=== PATIENT | male | born 1985 | race Caucasian/White ===

== ENCOUNTER 2018-08-19 17:28 | Emergency (ER) | payer BC ==
[2018-08-19] MEDS ORDERED: SODIUM CHLORIDE 1,000 ML IV STA (17:31)
[2018-08-19 17:34] VITALS: BP 127/77; PULSE 71; TEMP 98.8; BMI 35.2
--- NOTE | 2018-08-19 17:52 | PDOC ---
History of Present Illness <Verona Sloan - Last Filed: 08/19/18 18:49> - General History Source: Patient Exam Limitations: No Limitations - History of Present Illness Initial Comments: 08/19/18 17:48 32 year old male c/ hx of gout, inguinal hernia repair p/w left sided abdominal pain x several days. The patient reported that he was building a toy set for his son. Noted afterwards of developing LLQ pain. Reported pain was persistent and constant and dull, but there was no nausea, vomiting, diarrhea, No fevers, chills. Only endorsed worsened appetite. Has not noticed a "buldge" but believes it may be an abdominal hernia. States that the pain radiates to LUQ down to his left scrotum. Denies dysuria, urinary frequency, hematuria. Pt tried to call his PMD but they did not have an appointment until September 04. <Mario Salvador - Last Filed: 08/19/18 18:56> <Mario Chavez - Last Filed: 08/19/18 19:56> - General Chief Complaint: Pain Stated Complaint: ABD PAIN Time Seen by Provider: 08/19/18 17:30 Past History <Verona Sloan - Last Filed: 08/19/18 18:49> - Past Medical History COPD: No Other medical history: GOUT - Suicide/Smoking/Psychosocial Hx Smoking History: Never smoked Have you smoked in the past 12 months: No Information on smoking cessation initiated: No Hx Alcohol Use: No Drug/Substance Use Hx: No Substance Use Type: None <Mario Salvador - Last Filed: 08/19/18 18:56> <Mario Chavez - Last Filed: 08/19/18 19:56> - Past Medical History Allergies/Adverse Reactions: Allergies Allergy/AdvReac Type Severity Reaction Status Date / Time No Known Allergies Allergy Verified 08/19/18 17:29 Home Medications: Ambulatory Orders Allopurinol 600 mg PO DAILY 08/19/18 Ciprofloxacin [Cipro -] 500 mg PO Q12H #14 tablet 08/19/18 Review of Systems - Review of Systems Able to Perform ROS?: Yes Comments:: 08/19/18 18:15 GENERAL/CONSTITUTIONAL: [No fever or chills. No weakness. No weight change.] HEAD, EYES, EARS, NOSE AND THROAT: [No change in vision. No ear pain or discharge. No sore throat.] CARDIOVASCULAR: [No chest pain or shortness of breath.] RESPIRATORY: [No cough, wheezing, or hemoptysis.] GASTROINTESTINAL: [No nausea, vomiting, diarrhea or constipation. No rectal bleeding.] +abdominal pain. GENITOURINARY: [No dysuria, frequency, or change in urination.] MUSCULOSKELETAL: [No joint or muscle swelling or pain. No neck or back pain.] SKIN AND BREASTS: [No rash or easy bruising.] NEUROLOGIC: [No headache, vertigo, loss of consciousness, or loss of sensation.] PSYCHIATRIC: [No depression or anxiety.] ENDOCRINE: [No increased thirst. No abnormal weight change.] HEMATOLOGIC/LYMPHATIC: [No anemia, easy bleeding, or history of blood clots.] ALLERGIC/IMMUNOLOGIC: [No hives or skin allergy. No latex allergy.] <Mario Salvador - Last Filed: 08/19/18 18:56> *Physical Exam - Vital Signs Last Vital Signs Temp Pulse Resp BP Pulse Ox 98.8 F 71 18 127/77 99 08/19/18 17:28 08/19/18 17:28 08/19/18 17:28 08/19/18 17:28 08/19/18 17:28 <Verona Sloan - Last Filed: 08/19/18 18:49> - Vital Signs Last Vital Signs Temp Pulse Resp BP Pulse Ox 98.8 F 71 18 127/77 99 08/19/18 17:28 08/19/18 17:28 08/19/18 17:28 08/19/18 17:28 08/19/18 17:28 - Physical Exam Comments: 08/19/18 18:15 GENERAL: Awake, alert, and fully oriented, in no acute distress HEAD: No signs of trauma EYES: EOMI, sclera anicteric, conjunctiva clear ENT: Auricles normal inspection, hearing grossly normal, nares patent,Moist mucosa NECK: Normal ROM, supple ABDOMEN: Soft, TTP LUQ, Left mid, LLQ. No guarding, no rebound. No masses : Circumcized penis. No rashes, lesions, drainage. Mild tenderness to left testicle. Cremasteric reflex intact. no swelling appreciated. No inguinal hernia appreciated. EXTREMITIES: Normal range of motion, no edema. No clubbing or cyanosis. No cords, erythema, or tenderness NEUROLOGICAL: Cranial nerves II through XII grossly intact. Normal speech, normal gait SKIN: Warm, Dry, normal turgor, no rashes or lesions noted. <Mario Salvador - Last Filed: 08/19/18 18:56> - Vital Signs Last Vital Signs Temp Pulse Resp BP Pulse Ox 98.8 F 71 18 127/77 99 08/19/18 17:28 08/19/18 17:28 08/19/18 17:28 08/19/18 17:28 08/19/18 17:28 <Mario Chavez - Last Filed: 08/19/18 19:56> Moderate Sedation - Procedure Monitoring Vital Signs: Procedure Monitoring Vital Signs Temperature 98.8 F 08/19/18 17:28 Pulse Rate 71 08/19/18 17:28 Respiratory Rate 18 08/19/18 17:28 Blood Pressure 127/77 08/19/18 17:28 O2 Sat by Pulse Oximetry (%) 99 08/19/18 17:28 <Verona Sloan - Last Filed: 08/19/18 18:49> - Procedure Monitoring Vital Signs: Procedure Monitoring Vital Signs Temperature 98.8 F 08/19/18 17:28 Pulse Rate 71 08/19/18 17:28 Respiratory Rate 18 08/19/18 17:28 Blood Pressure 127/77 08/19/18 17:28 O2 Sat by Pulse Oximetry (%) 99 08/19/18 17:28 <Mario Salvador - Last Filed: 08/19/18 18:56> - Procedure Monitoring Vital Signs: Procedure Monitoring Vital Signs Temperature 98.8 F 08/19/18 17:28 Pulse Rate 71 08/19/18 17:28 Respiratory Rate 18 08/19/18 17:28 Blood Pressure 127/77 08/19/18 17:28 O2 Sat by Pulse Oximetry (%) 99 08/19/18 17:28 <Mario Chavez - Last Filed: 08/19/18 19:56> ED Treatment Course - LABORATORY CBC & Chemistry Diagram: 08/19/18 17:46 08/19/18 17:46 - ADDITIONAL ORDERS Additional order review: Laboratory Results 08/19/18 08/19/18 18:18 17:46 Sodium 136 Potassium 4.0 Chloride 100 Carbon Dioxide 26 Anion Gap 10 BUN 11 Creatinine 1.0 Creat Clearance w eGFR > 60 Random Glucose 96 Calcium 9.0 Total Bilirubin 0.5 AST 19 ALT 20 Alkaline Phosphatase 80 Total Protein 7.1 Albumin 4.3 Urine Color Yellow Urine Appearance Clear Urine pH 5.5 Ur Specific [place] 1.015 Urine Protein Negative Urine Glucose (UA) Negative Urine Ketones Negative Urine Blood Negative Urine Nitrite Negative Urine Bilirubin Negative Urine Urobilinogen 0.2 Ur Leukocyte Esterase Negative 08/19/18 17:46 RBC 5.12 MCV 88.2 MCHC 32.9 RDW 14.5 D MPV 10.1 D Neutrophils % 68.4 Lymphocytes % 21.8 D Monocytes % 9.1 Eosinophils % 0.0 D Basophils % 0.7 D - RADIOLOGY Radiograph Interpretation: EXAM#: TYPE/EXAM: RESULT: [id number] US/SCROTUM AND CONTENTS US IMPRESSION: Slight heterogeneous and hypervascular left testicle suspicious for orchitis. No evidence of testicular torsion. Clinical correlation and follow-up recommended. Please see above discussion. Reported By: Jd Fermin MD 08/19/18 18:45 08/19/18 18:49 - Medications Given in the ED: ED Medications Discontinued Medications Generic Name Dose Route Start Last Admin Trade Name Freq PRN Reason Stop Dose Admin Sodium Chloride 1,000 mls @ 1,000 mls/hr 08/19/18 17:31 08/19/18 18:00 Normal Saline - IV 08/19/18 18:30 1,000 mls/hr ASDIR STA Administration <Verona Sloan - Last Filed: 08/19/18 18:49> - LABORATORY CBC & Chemistry Diagram: 08/19/18 17:46 08/19/18 17:46 - RADIOLOGY Radiology Studies Ordered: Category Date Time Status ABDOMEN & PELVIS CT WITH CONTR [CT] Stat CT Scan 08/19/18 17:31 Ordered SCROTUM AND CONTENTS US [US] Stat Ultrasound 08/19/18 17:31 Ordered <Mario Salvador - Last Filed: 08/19/18 18:56> - LABORATORY CBC & Chemistry Diagram: 08/19/18 17:46 08/19/18 17:46 - ADDITIONAL ORDERS Additional order review: Laboratory Results 08/19/18 08/19/18 18:18 17:46 Sodium 136 Potassium 4.0 Chloride 100 Carbon Dioxide 26 Anion Gap 10 BUN 11 Creatinine 1.0 Creat Clearance w eGFR > 60 Random Glucose 96 Calcium 9.0 Total Bilirubin 0.5 AST 19 ALT 20 Alkaline Phosphatase 80 Total Protein 7.1 Albumin 4.3 Lipase 206 Urine Color Yellow Urine Appearance Clear Urine pH 5.5 Ur Specific [place] 1.015 Urine Protein Negative Urine Glucose (UA) Negative Urine Ketones Negative Urine Blood Negative Urine Nitrite Negative Urine Bilirubin Negative Urine Urobilinogen 0.2 Ur Leukocyte Esterase Negative 08/19/18 17:46 RBC 5.12 MCV 88.2 MCHC 32.9 RDW 14.5 D MPV 10.1 D Neutrophils % 68.4 Lymphocytes % 21.8 D Monocytes % 9.1 Eosinophils % 0.0 D Basophils % 0.7 D - Medications Given in the ED: ED Medications Discontinued Medications Generic Name Dose Route Start Last Admin Trade Name Freq PRN Reason Stop Dose Admin Ciprofloxacin 500 mg 08/19/18 18:52 08/19/18 19:08 Cipro (Restricted To Id) PO 08/19/18 18:53 500 mg ONCE ONE Administration Sodium Chloride 1,000 mls @ 1,000 mls/hr 08/19/18 17:31 08/19/18 18:00 Normal Saline - IV 08/19/18 18:30 1,000 mls/hr ASDIR STA Administration <Mario Chavez - Last Filed: 08/19/18 19:56> Medical Decision Making - Medical Decision Making 08/19/18 18:18 Vital Signs Temp Pulse Resp BP Pulse Ox 98.8 F 71 18 127/77 99 08/19/18 17:28 08/19/18 17:28 08/19/18 17:28 08/19/18 17:28 08/19/18 17:28 32 yo M c/ left sided abdominal pain and left testicular pain. Clinically, unlikely to be torsion. R/o orchitis/epidydmitis. Abdominal pain: r/o renal colic, diverticulitis, colitis, hernia Labs, UA/UC, abdomen and pelvis CT, scrotal ultrasound, and reassess. 08/19/18 18:41 CBC, BMP 08/19/18 17:46 08/19/18 17:46 CMP Sodium 136 mmol/L (136-145) 08/19/18 17:46 Potassium 4.0 mmol/L (3.5-5.1) 08/19/18 17:46 Chloride 100 mmol/L (98-107) 08/19/18 17:46 Carbon Dioxide 26 mmol/L (22-28) 08/19/18 17:46 Anion Gap 10 MMOL/L (8-16) 08/19/18 17:46 BUN 11 mg/dl (7-18) 08/19/18 17:46 Creatinine 1.0 mg/dl (0.6-1.3) 08/19/18 17:46 Creat Clearance w eGFR > 60 (>60) 08/19/18 17:46 Random Glucose 96 mg/dl (74-106) 08/19/18 17:46 Calcium 9.0 mg/dl (8.4-10.2) 08/19/18 17:46 Total Bilirubin 0.5 mg/dl (0.2-1.0) 08/19/18 17:46 AST 19 U/L (10-42) 08/19/18 17:46 ALT 20 U/L (10-40) 08/19/18 17:46 Alkaline Phosphatase 80 U/L (32-92) 08/19/18 17:46 Total Protein 7.1 g/dl (6.4-8.3) 08/19/18 17:46 Albumin 4.3 g/dl (3.5-5.0) 08/19/18 17:46 Urine Test Results Urine Color Yellow 08/19/18 18:18 Urine Appearance Clear 08/19/18 18:18 Urine pH 5.5 (4.5-8) 08/19/18 18:18 Ur Specific [place] 1.015 (1.010-1.035) 08/19/18 18:18 Urine Protein Negative (NEGATIVE) 08/19/18 18:18 Urine Glucose (UA) Negative (NEGATIVE) 08/19/18 18:18 Urine Ketones Negative (NEGATIVE) 08/19/18 18:18 Urine Blood Negative (NEGATIVE) 08/19/18 18:18 Urine Nitrite Negative (NEGATIVE) 08/19/18 18:18 Urine Bilirubin Negative (NEGATIVE) 08/19/18 18:18 Ur Leukocyte Esterase Negative (NEGATIVE) 08/19/18 18:18 08/19/18 18:56 Ultrasound shows orchitis. Will treat with ciprofloxacin. Pt is not sexually active and no hx of STDs. Pt signed out to Dr. Chavez for further management and disposition. <Mario Salvador - Last Filed: 08/19/18 18:56> - Medical Decision Making 08/19/18 19:53 CTAP negative for acute patholgoy Results explained to pts Pain well controlled at this time, well appearing Cipro sent to pharmacy by Dr. Salvador Will refer to urology Stable for DC home I discussed the physical exam findings, ancillary test results and final diagnoses with the patient. I answered all of the patient's questions. The patient was satisfied with the care received and felt comfortable with the discharge plan and treatment plan. The patient will call their primary care physician within 24 hours to arrange follow-up and will return to the Emergency Department with any new, persistent or worsening symptoms. <Mario Chavez - Last Filed: 08/19/18 19:56> *DC/Admit/Observation/Transfer - Attestations Scribe Attestion: Documentation prepared by JOEY Cruz, acting as medical examiner for Mario Salvador MD. 08/19/18 18:50 <Verona Sloan - Last Filed: 08/19/18 18:49> <Mario Salvador - Last Filed: 08/19/18 18:56> - Attestations Physician Attestion: 08/19/18 19:56 I, Dr. Mario Chavez MD, attest that this document has been prepared under my direction and personally reviewed by me in its entirety. I further attest, that it accurately reflects all work, treatment, procedures and medical decision -making performed by me. <Mario Chavez - Last Filed: 08/19/18 19:56> Diagnosis at time of Disposition: Orchitis Abdominal pain Qualifiers: Abdominal location: unspecified location Qualified Code(s): R10.9 - Unspecified abdominal pain - Discharge Dispostion Disposition: HOME Condition at time of disposition: Stable - Prescriptions Prescriptions: Ciprofloxacin [Cipro -] 500 mg PO Q12H #14 tablet - Referrals Referrals: Waldo Tyler MD [Primary Care Provider] - Tommy Watts MD [Staff Physician] - - Patient Instructions Printed Discharge Instructions: Epididymitis, DI for Abdominal Pain-Adult Additional Instructions: Follow up with Dr. Tyler within 2-3 days We have included a referral for a urologist. Follow up within 1 week. Take the antibiotics as prescribed Return to the emergency department if you have any new, worsening, or concerning symptoms - Post Discharge Activity
[2018-08-19 17:55] LABS: BASO % 0.7 % (0-2.0); HEMATOCRIT 45.1 % (35.4-49); HEMOGLOBIN 14.9 GM/dl (11.7-16.9); LYMPH % 21.8 % (8-40); MCHC 32.9 g/dl (32.0-35.9); MEAN CELL VOLUME 88.2 fl (80-96); MEAN PLT VOLUME 10.1 fl (7.5-11.1); MONO % 9.1 % (3.8-10.2); NEUT % 68.4 % (42.8-82.8); PLATELET COUNT 158 K/MM3 (134-434); RBC 5.12 M/mm3 (4.00-5.60); RDW 14.5 % (11.9-15.9); WHITE BLOOD COUNT 5.5 K/mm3 (4.0-10.8)
[2018-08-19 18:06] LABS: ALBUMIN 4.3 g/dl (3.5-5.0); ALK PHOS 80 U/L (32-92); ANION GAP 10 MMOL/L (8-16); BILIRUBIN,TOTAL 0.5 mg/dl (0.2-1.0); BLOOD UREA NITROGEN 11 mg/dl (7-18); CHLORIDE 100 mmol/L (98-107); CO2 26 mmol/L (22-28); GLUCOSE,RANDOM 96 mg/dl (74-106); SGOT/AST 19 U/L (10-42); SGPT/ALT 20 U/L (10-40); SODIUM 136 mmol/L (136-145); TOT PROT 7.1 g/dl (6.4-8.3)
[2018-08-19 18:26] LABS: PH,URINE 5.5 (4.5-8); URINE APPEARANCE Clear; URINE BILIRUBIN Negative (NEGATIVE); URINE COLOR Yellow; URINE GLUCOSE (UA) Negative (NEGATIVE); URINE KETONE Negative (NEGATIVE); URINE LEUK ESTERASE Negative (NEGATIVE); URINE NITRITE Negative (NEGATIVE); URINE PROTEIN Negative (NEGATIVE); URINE UROBILINOGEN 0.2 (0.2-1.0)
[2018-08-19] MEDS ORDERED: CIPROFLOXACIN 500 MG TABLET (RESTRICTED TO ID) PO ONE (18:52)
[2018-08-19] MEDS ORDERED: CIPROFLOXACIN 250 MG TABLET (RESTRICTED TO ID) PO ONE (19:01)
[2018-08-19 19:07] LABS: LIPASE 206 U/L (73-393)
== END 2018-08-19 20:15 | disposition home or self-care (01) ==
LOC: FER 17:28
PROC: 3E0337Z Introduction of Electrolytic and Water Balance Substance into Peripheral Vein, Percutaneous Approach (ICD-10-PCS; principal; 2018-08-19)
DX: N45.2 Orchitis (principal); R10.32 Left lower quadrant pain
CPT/HCPCS: 36415; 74177-TC; 76870-TC; 80053; 81003; 83690; 85025; 87086; 99284-25; J7030

== ENCOUNTER 2021-08-03 13:17 | Emergency (ER) | payer BC ==
[2021-08-03 13:37] VITALS: TEMP 99.2; BMI 31.8
[2021-08-03 14:45] LABS: ACTIVATED PTT 29.2 SECONDS (25.2-36.5)
[2021-08-03 14:48] LABS: ALBUMIN 4.2 g/dl (3.4-5.0); BILIRUBIN,TOTAL 0.4 mg/dl (0.2-1); CALCIUM 9.4 mg/dl (8.5-10); CREATININE 0.9 mg/dl (0.55-1.3); MAGNESIUM 1.8 mg/dL (1.8-2.4); TOT PROT 6.6 g/dl (6.4-8.2)
[2021-08-03 14:50] LABS: INR 1.1 (0.83-1.09); PROTHROMBIN TIME (PATIENT) 12.2 SEC (9.7-13.0)
[2021-08-03 16:23] LABS: BASO % 0.3 % (0-2.0); EOS % 0.6 % (0-4.5); HEMATOCRIT 43.9 % (35.4-49); HEMOGLOBIN 15.3 GM/dL (11.7-16.9); LYMPH % 21.6 % (8-40); MCH 30.1 pg (25.7-33.7); MCHC 34.7 g/dl (32.0-35.9); MEAN CELL VOLUME 86.6 fl (80-96); MEAN PLT VOLUME 9.6 fl (7.5-11.1); MONO % 11.4 % (3.8-10.2); NEUT % 66.1 % (42.8-82.8); PLATELET COUNT 124 10^3/uL (134-434); RBC 5.07 M/mm3 (4.00-5.60); RDW 14.1 % (11.9-15.9); WHITE BLOOD COUNT 5.7 K/mm3 (4.0-10.0)
[2021-08-03 18:20] VITALS: BP 117/76; PULSE 65
== END 2021-08-03 18:18 | disposition home or self-care (01) ==
LOC: FER 13:17
DX: R07.9 Chest pain, unspecified (principal)
CPT/HCPCS: 36415; 71045-TC-FY; 80053; 82550; 83735; 84484; 85025; 85379; 85610; 85730; 93005; 99285-25

== ENCOUNTER 2022-02-17 18:29 | Emergency (ER) | payer BC ==
[2022-02-17] MEDS ORDERED: ASPIRIN 81 MG CHEWABLE TABLETS PO ONE (19:24)
[2022-02-17] MEDS ORDERED: ASPIRIN 81 MG CHEWABLE TABLETS ONE (19:26)
[2022-02-17 19:33] VITALS: BP 127/72; PULSE 68; TEMP 98.6; BMI 31.1
[2022-02-17 19:42] LABS: HEMATOCRIT 43.8 % (35.4-49); HEMOGLOBIN 15.8 G/dL (11.7-16.9); MCH 31.5 pg (25.7-33.7); MEAN CELL VOLUME 87.6 fl (80-96); MEAN PLT VOLUME 9.7 fl (7.5-11.1); PLATELET COUNT 160.8 10^3/uL (134-434); RDW 15.3 % (11.9-15.9); WHITE BLOOD COUNT 6.6 10^3/uL (4.0-10.8)
[2022-02-17 19:51] LABS: ALBUMIN 4.4 g/dl (3.4-5.0); BILIRUBIN,TOTAL 0.8 mg/dl (0.2-1); CALCIUM 9.7 mg/dl (8.5-10); TOT PROT 7.1 g/dl (6.4-8.2)
== END 2022-02-17 21:48 | disposition home or self-care (01) ==
LOC: FER 18:29
DX: F41.9 Anxiety disorder, unspecified (principal); R07.89 Other chest pain
CPT/HCPCS: 36415; 71045-TC-FY; 80053; 82550; 84443; 84484; 85025; 93005; 99285-25